=== PATIENT | female | born 2000 | race Caucasian/White ===

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

== ENCOUNTER 2020-05-29 18:26 | Outpatient (CLI) | payer BC ==
[2020-05-29 18:37] VITALS: BP 106/74
--- NOTE | 2020-05-30 14:45 | PROCEDURE REPORT ---
- HPI Diagnosis/Indication for NST: Other (Contractions at term) Current EDU 06/09/20 Gestation 38 Weeks and 3 Days 3 Para 1 Vital Signs Temperature 97.5 F L 05/29/20 18:35 Heart Rate 104 H 05/29/20 18:35 Respiratory Rate 18 05/29/20 18:35 Blood Pressure 106/74 05/29/20 18:35 O2 Saturation 100 05/29/20 18:35 Temperature 97.5 F L 05/29/20 18:35 Heart Rate 104 H 05/29/20 18:35 Respiratory Rate 18 05/29/20 18:35 Blood Pressure 106/74 05/29/20 18:35 O2 Saturation 100 05/29/20 18:35 - NST Procedure NST Procedure Start Date 05/29/20 Start Time 18:35 Stop Time 19:05 Vibroacoustic Stimulation Used No Patient States Movement Yes - Results and Plan Findings/Impression: Baseline: BPM 135 Variability: Moderate Accelerations: Present Decelerations: Absent Trends in FHR over time: no changes [place] contractions in 10 minutes: 1-2 Impression: reactive Category 1 NST Here to r/o labor, usually goes to [facility] but we were closer. No VB, no LOF. SVE 1cm same as her last SVE in clinic. OK for discharge now, go to [facility] PRN increasing contractions. Not seen by MD. Final dx = contractions at term / threatened labor
== END 2020-05-29 19:14 | disposition home or self-care (01) ==
LOC: WFO 18:26 → FBP 18:31 → WFO 19:14
PROVIDERS: ATTEND Obstetrics & Gynecology
DX: O47.1 False labor at or after 37 completed weeks of gestation (principal); Z3A.38 38 weeks gestation of pregnancy
CPT/HCPCS: 59025; 99213

== ENCOUNTER 2021-08-07 21:10 | Emergency (ER) | payer BC ==
[2021-08-07 21:16] VITALS: BP 122/69
[2021-08-07 21:48] LABS: BILIRUBIN,URINE NEGATIVE (NEGATIVE); GLUCOSE, URINE (UA) NEGATIVE (NEGATIVE); KETONES,URINE (UA) NEGATIVE (NEGATIVE); LEUKOCYTE ESTERASE, URINE NEGATIVE (NEGATIVE); NITRITE,URINE NEGATIVE (NEGATIVE); OCCULT BLOOD,URINE NEGATIVE (NEGATIVE); PROTEIN,URINE 100 mg/dL (NEGATIVE); UROBILINOGEN,URINE 0.2 (NORMAL) E.U./dL (NORMAL)
[2021-08-07 21:53] LABS: CLARITY,URINE CLEAR (CLEAR); HCG UR QUAL NEGATIVE
[2021-08-07 21:54] LABS: BACTERIA,URINE Many /HPF (None Seen); RBC,URINE None Seen /HPF (0-5); SQUAMOUS EPITHELIAL CELL,UR MANY Squamous (<= Few); WBC,URINE 0-3 /HPF (0-5)
[2021-08-07] MEDS ORDERED: cefTRIAXone 500 MG VIAL IVP STA (21:56)
[2021-08-07] MEDS ORDERED: AZITHROMYCIN 250 MG TABLET PO STA (21:57)
--- NOTE | 2021-08-07 22:00 | ED Physician Documentation ---
History of Present Illness - Stated complaint Stated Complaint: FEMALE - Chief complaint Chief Complaint: General - Additonal information Additional information: 21-year-old female presents emergency department for evaluation of pain and swelling in her left genital region. Symptoms began this morning. She is sexually active with a new partner that began 5 months ago. No condom use. No history of STI. Denies dysuria. 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 : None HEENT: None Psych: None Musculoskeletal: None Derm: None - Past Surgical History Past Surgical History: Yes HEENT: Tonsil/Adenoidectomy - Present Medications Home Medications: Ambulatory Orders Medication Instructions Recorded Confirmed Sertraline HCl 100 mg PO DAILY 08/07/21 08/07/21 Valacyclovir HCl [Valtrex] 1,000 mg PO BID 10 Days #20 tablet 08/07/21 - Allergies Allergies/Adverse Reactions: Allergies Allergy/AdvReac Type Severity Reaction Status Date / Time No Known Drug Allergies Allergy Verified 08/07/21 21:16 - Social History Does the pt smoke?: No Smoking Status: Never smoker Does the pt drink ETOH?: No Does the pt have substance abuse?: No - Immunizations Immunizations are current?: Yes - POLST Patient has POLST: No PD ED PE EXPANDED - General General: Alert, No acute distress - Abdomen Abdomen: No: Tender to palpation - Female Female : Manager Msw present, Other (2 shallow ulcerated lesions on the left inner labia minora. Moderate amount of yellow vaginal discharge. No labial swelling) Results - Vitals Vitals: Vital Signs - 24 hr 08/07/21 21:13 Temperature 2.7 C L Heart Rate 102 H Respiratory 16 Rate Blood Pressure 122/69 O2 Saturation 97 Oxygen O2 Source Room air - Labs Labs: Laboratory Tests 08/07/21 21:44 Urine Color YELLOW Urine Clarity CLEAR Urine pH 6.0 Ur Specific [place] >=1.030 H Urine Protein 100 H Urine Glucose (UA) NEGATIVE Urine Ketones NEGATIVE Urine Occult Blood NEGATIVE Urine Nitrite NEGATIVE Urine Bilirubin NEGATIVE Urine Urobilinogen 0.2 (NORMAL) Ur Leukocyte Esterase NEGATIVE Urine RBC None Seen Urine WBC 0-3 Ur Squamous Epith Cells MANY Squamous H Urine Bacteria Many H Ur Microscopic Review INDICATED Urine Culture Comments NOT INDICATED Urine HCG, Qual NEGATIVE PD MEDICAL DECISION MAKING - ED course Complexity details: reviewed results, re-evaluated patient, considered differential, d/w patient, d/w family ED course: 21-year-old female presents emergency department for evaluation of new onset pain in her left inner labia minora that she noted this morning. She is sexually active with a new partner. Bisexual activity 2 weeks ago. On exam she has 2 shallow ulcerations most consistent with acute genital herpes. A viral panel has been sent to the lab. A GC is pending but patient has elected empiric treatment while here in the emergency department which we will accommodate. Prescription for valacyclovir sent to the pharmacy. She is advised close follow-up with her primary care provider. Emergent return precautions otherwise discussed. Departure - Departure Disposition: Home, Self Care Clinical Impression: Screen for sexually transmitted diseases Genital herpes Qualifiers: Herpes simplex infection site: vulvovaginitis Qualified Code(s): A60.04 - Herpesviral vulvovaginitis Condition: Stable Record reviewed to determine appropriate education?: Yes Instructions: ED Herpes Simplex Virus Type 2 Prescriptions: Valacyclovir HCl [Valtrex] 1,000 mg PO BID 10 Days #20 tablet Comments: You are seen today in the emergency department for pain in your left genital region. On exam you do have some shallow ulcers that are most consistent with a herpes or genital herpes infection. We have sent some swabs to screen you for chlamydia and gonorrhea. We also sent a viral swab to check for herpes. We will notify you of any positive results. I have sent a prescription for valacyclovir, and antiviral medication to the [facility]. Please take twice daily for the next 10 days. I do recommend that you sit in a warm sitz bath once or twice daily until your lesions heal. You have chosen empiric treatment for possible chlamydia or gonorrhea as well today. You were given injection of ceftriaxone as well as azithromycin. If you find that despite the antibiotics your symptoms fail to resolve you should return immediately to the ER. You need to discuss this ED visit with your partner. He should be tested and treated before you engage in any sexual activity again and you should both abstain for at least 2 weeks
[2021-08-08 11:32] LABS: CHLAMYDIA TRACHOMATIS DNA NEGATIVE (NEGATIVE); NEISSERIA GONORRHOEAE DNA NEGATIVE (NEGATIVE); TRICHOMONAS VAGINALIS DNA NEGATIVE (NEGATIVE)
[2021-08-11 15:51] LABS: HSV 1 DNA NOT DETECTED; HSV 2 DNA NOT DETECTED; SOURCE VAGINAL
== END 2021-08-07 22:16 | disposition home or self-care (01) ==
LOC: ED 21:10
DX: A60.04 Herpesviral vulvovaginitis (principal); Z11.3 Encounter for screening for infections with a predominantly sexual mode of transmission
CPT/HCPCS: 81001; 81025; 87491; 87529; 87591; 87661; 96374; 99283; A9270; 81003; 87086

== ENCOUNTER 2022-10-24 15:13 | Emergency (ER) | payer BC, MEDICAID, OTHER ==
[2022-10-24 15:25] VITALS: BP 99/61
[2022-10-24] MEDS ORDERED: predniSONE 20 MG TABLET PO STA (15:43)
--- NOTE | 2022-10-24 15:45 | ED Physician Documentation ---
PD HPI SKIN - Stated complaint Stated Complaint: FACIAL SWELLING/ITCH THROAT - Chief complaint Chief Complaint: Allergic Rx - History obtained from History obtained from: Patient - Additional information Additional information: She developed upper lip swelling and anterior neck itching starting last night. The swelling was worse this morning and seems to be improving on its own but is not gone. This is never happened before. No known allergens. She tried Benadryl which was not helpful. 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 : None HEENT: None Psych: None Musculoskeletal: None Derm: None - Past Surgical History Past Surgical History: Yes HEENT: Tonsil/Adenoidectomy - Present Medications Home Medications: Ambulatory Orders Medication Instructions Recorded Confirmed Doxepin [SINEquan] 10 mg PO TID PRN #14 cap 10/24/22 Venlafaxine HCl [Effexor Xr] 150 mg ORAL DAILY 10/24/22 10/24/22 predniSONE [Deltasone] 60 mg PO DAILY 5 Days #15 tablet 10/24/22 - Allergies Allergies/Adverse Reactions: Allergies Allergy/AdvReac Type Severity Reaction Status Date / Time No Known Drug Allergies Allergy Verified 10/24/22 15:23 - Social History Does the pt smoke?: No Smoking Status: Never smoker Does the pt drink ETOH?: No Does the pt have substance abuse?: No - Immunizations Immunizations are current?: Yes - POLST Patient has POLST: No PD ED PE NORMAL - Vitals Vital signs reviewed: Yes - General General: Alert and oriented X 3, No acute distress - HEENT HEENT: Other (Mild edema of the upper lip right worse than left without retropharyngeal or oropharyngeal edema.) - Neck Neck: Supple, no meningeal sign, No bony TTP - Respiratory Respiratory: No respiratory distress, Clear bilaterally - Abdomen Abdomen: Non tender - Derm Derm: Other (Mild anterior neck erythema) - Neuro Neuro: Alert and oriented X 3, Normal speech Results - Vitals Vitals: Vital Signs - 24 hr 10/24/22 15:15 Temperature 37.1 C Heart Rate 113 H Respiratory 16 Rate Blood Pressure 99/61 O2 Saturation 99 Oxygen O2 Source Room air Departure - Departure Disposition: 01 Home, Self Care Clinical Impression: Allergic reaction Condition: Good Record reviewed to determine appropriate education?: Yes Instructions: ED Allergic Reaction General Other Prescriptions: predniSONE [Deltasone] 60 mg PO DAILY 5 Days #15 tablet Doxepin [SINEquan] 10 mg PO TID PRN #14 cap PRN Reason: Itching Comments: Call your doctor to arrange a follow-up appointment, make the next available appointment. In the interim, return anytime if worse or if new symptoms develop.
== END 2022-10-24 15:52 | disposition home or self-care (01) ==
LOC: ED 15:13
DX: T78.40XA Allergy, unspecified, initial encounter (principal)
CPT/HCPCS: 99282; 99283; J7512

== ENCOUNTER 2022-10-25 04:26 | Emergency (ER) | payer MEDICAID ==
--- NOTE | 2022-10-25 04:57 | ED Physician Documentation ---
History of Present Illness - Stated complaint Stated Complaint: BODY ITCH - Chief complaint Chief Complaint: Wound - History obtained from History obtained from: Patient - Additonal information Additional information: HPI from patient. Patient c/o diffuse/body-wide intensely pruritic rash. She was T+R from this ED approximately 12 hours ago when she presented for pruritis that was more localized to anterior neck, as well as upper lip swelling. She was given 60mg PO prednisone and prescribed doxepin and 5 days of QD Prednisone. She has not had a chance to fill the prescriptions yet. The lip swelling has resolved but the itching is now diffuse and with hives (did not have any rash/hives on previous visit). No h/o similar symptoms and there is no apparent inciting event/trigger. She denies dyspnea, lightheadedness. Has been taking benadryl without improvement. 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 : None HEENT: None Psych: Depression Musculoskeletal: None Derm: None - Past Surgical History Past Surgical History: Yes HEENT: Tonsil/Adenoidectomy - Present Medications Home Medications: Ambulatory Orders Medication Instructions Recorded Confirmed Venlafaxine HCl [Effexor Xr] 150 mg ORAL DAILY 10/24/22 10/25/22 predniSONE [Deltasone] 60 mg PO DAILY 5 Days #15 tablet 10/24/22 10/25/22 Doxepin [SINEquan] 10 mg PO TID PRN #14 cap 10/25/22 EPINEPHrine [Epinephrine] 0.3 mg IJ ONCE PRN #2 each 10/25/22 hydrOXYzine HCL [Hydroxyzine HCl] 25 - 50 mg PO TID PRN #20 tablet 10/25/22 predniSONE [Deltasone] 60 mg PO DAILY 4 Days #12 tablet 10/25/22 - Allergies Allergies/Adverse Reactions: Allergies Allergy/AdvReac Type Severity Reaction Status Date / Time No Known Drug Allergies Allergy Verified 10/25/22 04:44 - Social History Does the pt smoke?: No Smoking Status: Never smoker Does the pt drink ETOH?: No Does the pt have substance abuse?: No - Immunizations Immunizations are current?: Yes - POLST Patient has POLST: No PD ED PE NORMAL - Vitals Vital signs reviewed: Yes - General General: Alert and oriented X 3, No acute distress, Well developed/nourished, Other (frequently scratching at hives on extremities, trunk) - HEENT HEENT: Pharynx benign, Other (no mariano/intraoral swelling) - Respiratory Respiratory: No respiratory distress, Clear bilaterally PD ED PE EXPANDED - Derm Derm: Urticaria (diffusely on all four extremities, back, abdomen, and chest, but sparing of face/head/neck. ) Results - Vitals Vitals: Vital Signs - 24 hr 10/25/22 10/25/22 10/25/22 04:41 06:08 06:59 Temperature 36.6 C Heart Rate 107 H 91 88 Respiratory 16 16 16 Rate Blood Pressure 112/74 110/87 H 106/69 O2 Saturation 98 99 100 Oxygen O2 Source Room air PD Medical Decision Making - ED course Complexity details: re-evaluated patient, considered differential, d/w patient ED course: Given 10mg PO decadron and 0.3 mg IM epinephrine. On reevaluation, the hives have resolved. She says she feels drastic improvement, only minimal pruritis of BUE. She is observed for nearly an hour after the IM epinephrine and continues to have sustained results without adverse effect and thus discharged. I e- prescribed atarax, a four-day course of prednisone, doxepin, and epi-pens. I instructed her to only use the epi-pen for anaphylactic symptoms (not just pruritis/rash; to be used for dyspnea, swelling in or around mouth/throat, lightheadedness with sensation of going to pass out). I instructed her to try the doxepin and to then switch to the vistaril if the doxepin is ineffective for her itching/rash. 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 Return precautions reviewed. Departure - Departure Disposition: 01 Home, Self Care Clinical Impression: Allergic reaction Qualifiers: Encounter type: initial encounter Qualified Code(s): T78.40XA - Allergy, unspecified, initial encounter Condition: Good Instructions: ED Allergic Reaction General Other Prescriptions: predniSONE [Deltasone] 60 mg PO DAILY 4 Days #12 tablet EPINEPHrine [Epinephrine] 0.3 mg IJ ONCE PRN #2 each PRN Reason: Anaphylaxis hydrOXYzine HCL [Hydroxyzine HCl] 25 - 50 mg PO TID PRN #20 tablet PRN Reason: Itching Doxepin [SINEquan] 10 mg PO TID PRN #14 cap PRN Reason: Itching Comments: I have electronically submitted prescriptions to [facility] in [place] for the following medications: Prednisone (steroid), doxepin (medication that can help with the itching and rash), hydroxyzine (a different medication that you can use for the itching/rash if the doxepin is ineffective), and EpiPen. The EpiPen is to only be used if you are having symptoms of anaphylaxis such as difficulty breathing, wheezing, lightheadedness, swelling or sensation of constriction of the lips, tongue, or throat. I recommend using EITHER the doxepin OR the hydroxyzine, whichever is more effective in controlling the itching and rash. Follow-up with your primary care provider, next available appointment. Forms: Activity restrictions Discharge Date/Time: 10/25/22 07:32
[2022-10-25] MEDS: EPINEPHrine 1 MG/ML AMP IM STA (05:43)
[2022-10-25] MEDS: FAMOTIDINE 20 MG TABLET PO STA (05:43)
[2022-10-25] MEDS: DEXAMETHASONE 10 MG/ML VIAL PO STA (05:43)
[2022-10-25] MEDS: CHERRY SYRUP 10 ML UDC PO ONE (05:43)
[2022-10-25 07:02] VITALS: BP 106/69
== END 2022-10-25 07:32 | disposition home or self-care (01) ==
LOC: ED 04:26
DX: T78.40XA Allergy, unspecified, initial encounter (principal); X58.XXXA Exposure to other specified factors, initial encounter; Z79.899 Other long term (current) drug therapy
CPT/HCPCS: 99283; A9270

== ENCOUNTER 2023-07-28 08:55 | Outpatient (CLI) | payer MEDICAID ==
[2023-07-28 12:21] LABS: ALBUMIN 4.4 g/dL (3.2-5.5); ALBUMIN/GLOBULIN RATIO 1.5 (1.0-2.2); ALKALINE PHOSPHATASE 40 IU/L (42-121); ALT ALANINE AMINOTRANSFERASE 22 IU/L (10-60); AST ASPARTATE AMINOTRANSFERASE 24 IU/L (10-42); BASOPHILS % (AUTO) 0.2 %; BILIRUBIN,TOTAL 0.9 mg/dL (0.2-1.0); BUN - BLOOD UREA NITROGEN 18 mg/dL (6-20); CALCIUM 9.4 mg/dL (8.5-10.3); CARBON DIOXIDE - CO2 28 mmol/L (21-32); CHLORIDE 106 mmol/L (101-111); CREATININE 0.6 mg/dL (0.6-1.3); EOSINOPHILS # (AUTO) 0.1 10^3/uL (0.0-0.7); EOSINOPHILS % (AUTO) 1.9 %; GFR - MDRD 122 (>89); GLUCOSE 82 mg/dL (74-104); HGB - HEMOGLOBIN 13.6 g/dL (12.0-16.0); MEAN CORPUSCULAR HEMOGLOBIN 32.2 pg (27.0-31.0); MEAN CORPUSCULAR HGB CONC 32.4 g/dL (32.0-36.0); MEAN CORPUSCULAR VOLUME 99.5 fL (81.0-99.0); MONOCYTES # (AUTO) 0.4 10^3/uL (0.0-1.0); MONOCYTES % (AUTO) 7.6 %; NEUTROPHILS # (AUTO) 3.7 10^3/uL (1.5-6.6); NEUTROPHILS % (AUTO) 71.1 %; PLT - PLATELET COUNT 212 10^3/uL (130-450); POTASSIUM 4.7 mmol/L (3.5-4.5); RED BLOOD COUNT 4.22 10^6/uL (4.20-5.40); RED CELL DISTRIBUTION WIDTH 13.5 % (12.0-15.0); SODIUM 138 mmol/L (135-145); TOTAL PROTEIN 7.4 g/dL (6.4-8.9); WHITE BLOOD COUNT 5.3 x10^3/uL (4.8-10.8)
[2023-07-28 12:29] LABS: HCG,QUALITATIVE BLOOD NEGATIVE
[2023-07-28 12:39] LABS: THYROID STIMULATING HORMONE 2.15 uIU/mL (0.34-5.60)
[2023-07-28 12:45] LABS: FERRITIN 14.1 ng/mL (11.0-306.8)
== END 2023-07-28 08:56 | disposition home or self-care (01) ==
LOC: LAB.N 08:55
PROVIDERS: ATTEND Family Medicine
DX: N91.2 Amenorrhea, unspecified (principal); R53.83 Other fatigue; K64.4 Residual hemorrhoidal skin tags; Z87.19 Personal history of other diseases of the digestive system
CPT/HCPCS: 36415; 80050; 82728; 84703

== ENCOUNTER 2023-08-15 21:57 | Emergency (ER) | payer MEDICAID ==
[2023-08-15 22:14] VITALS: BP 139/71; O2SAT 100
--- NOTE | 2023-08-15 22:41 | ED Physician Documentation ---
PD HPI SKIN - Stated complaint Stated Complaint: RT ARM RASH - Chief complaint Chief Complaint: Ext Problem - History obtained from History obtained from: Patient - Additional information Additional information: Patient is a 23-year-old female presenting for evaluation of a rash to her right arm that she noticed around 2:00 this afternoon. 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 She denies any unusual chemicals but does have grease on various areas of her body but states that this is what she is also had on other areas of her body and does not have a rash or irritation anywhere else. She did clean the area with Tricia dish soap. Pt reports while she was working and noticed right arm discomfort and some abrasions to right arm. Reports rash progressed since 1400. 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 Pt has tried Benadryl and cleaning area with soap. She has noticed some progression of the rash since she noticed it this afternoon.Reports pain is a burning sensation. Does not take any medications. No new foods. 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 : None HEENT: None Psych: Depression, Anxiety Musculoskeletal: None Derm: None - Past Surgical History Past Surgical History: Yes HEENT: Tonsil/Adenoidectomy - Present Medications Home Medications: Ambulatory Orders Medication Instructions Recorded Confirmed Venlafaxine HCl [Effexor Xr] 150 mg ORAL DAILY 10/24/22 08/15/23 EPINEPHrine [Epinephrine] 0.3 mg IJ ONCE PRN #2 each 10/25/22 08/15/23 Fexofenadine HCl [Olga Hives] 180 mg PO DAILY 08/15/23 08/15/23 Fluticasone [Flonase] 1 spr LLOYD DAILY 08/15/23 08/15/23 predniSONE [Deltasone] 60 mg PO DAILY 4 Days #12 tablet 08/15/23 - Allergies Allergies/Adverse Reactions: Allergies Allergy/AdvReac Type Severity Reaction Status Date / Time dog dander Allergy Itching Verified 08/15/23 22:09 - Social History Does the pt smoke?: No Smoking Status: Never smoker Does the pt drink ETOH?: No Does the pt have substance abuse?: No - Immunizations Immunizations are current?: Yes - POLST Patient has POLST: No PD ED PE NORMAL - General General: Alert and oriented X 3, No acute distress, Well developed/nourished - HEENT HEENT: Atraumatic - Neck Neck: Supple, no meningeal sign - Cardiac Cardiac: Strong equal pulses - Respiratory Respiratory: No respiratory distress - Derm Derm: Other (Patchy areas of blanching erythema to right upper extremity, no involvement of palms, normal range of motion of right elbow) Results - Vitals Vitals: Vital Signs - 24 hr 08/15/23 22:02 Temperature 36.3 C L Heart Rate 98 Respiratory 16 Rate Blood Pressure 139/71 H O2 Saturation 100 Oxygen O2 Source Room air PD Medical Decision Making - ED course ED course: Patient with rash to right upper arm that appears to be an allergic Reaction. Vital signs are stable and no respiratory symptoms. Given extent of rash on upper arm we will initiate treatment with oral prednisone. Patient is already on an antihistamine Allergy medication and understands she should continue with this. Exam does not suggest cellulitis. No signs of joint infection. Patient counseled on treatment plan as well as concerning symptoms to return for. Departure - Departure Disposition: 01 Home, Self Care Clinical Impression: Allergic dermatitis Condition: Stable Instructions: ED Dermatitis Non Specific Rash Prescriptions: predniSONE [Deltasone] 60 mg PO DAILY 4 Days #12 tablet Comments: I suspect that your Rash is related to an allergic process. I have sent a prescription for oral prednisone which is a steroid to [facility] in [place]. Please make sure to take the medication as directed. Return to the emergency department with any worsening symptoms. Forms: PCP List Discharge Date/Time: 08/15/23 22:48
[2023-08-15] MEDS: HYDROCORTISONE 1% CREAM 28 GM TUBE TOP SCH (22:44)
[2023-08-15] MEDS: predniSONE 20 MG TABLET PO STA (22:44)
== END 2023-08-15 22:48 | disposition home or self-care (01) ==
LOC: ED 21:57
DX: L23.9 Allergic contact dermatitis, unspecified cause (principal)
CPT/HCPCS: 99283; A9270; J7512